=== PATIENT | female | born 1955 | race Two or more races ===

== ENCOUNTER 2019-04-27 11:00 | Inpatient (IN) | payer MEDICARE, MEDICAID ==
[~2019-04-27] VITALS: Ht 154.9 cm; Wt 146.8 kg
[2019-04-27] MEDS ORDERED: MethylPREDNISolone SOD SUCC 125 MG/2 ML VIAL IVP ONE (11:15)
[2019-04-27 11:18] LABS: GLUCOSE,POINT OF CARE 116 MG/DL (70-110)
[2019-04-27 11:33] LABS: BASOPHILS % (AUTO) 0.3 % (0.0-2.0); EOSINOPHILS % (AUTO) 0.8 % (1.0-6.0); HEMATOCRIT 29.8 % (36-46); HEMOGLOBIN 9.3 g/dL (12.0-16.0); LYMPHOCYTES % (AUTO) 12.1 % (22.0-44.0); MEAN CORPUSCULAR VOLUME 74 fL (80-100); MONOCYTES # (AUTO) 0.5 K/uL (0.1-1.0); MONOCYTES % (AUTO) 6.1 % (2.0-9.0); NEUTROPHILS # (AUTO) 6.9 K/uL (1.8-7.7); NEUTROPHILS % (AUTO) 80.7 % (40.0-70.0); PLATELET COUNT (AUTO) 303 K/uL (150-450); RED BLOOD CELL COUNT(AUTO) 4.02 MIL/uL (4.00-5.20); RED CELL DISTRIBUTION WIDTH 20.7 % (11.5-14.5)
[2019-04-27 11:43] LABS: ANION GAP 4 mmol/L (8-16); CALCIUM, TOTAL 8.8 mg/dL (8.8-10.5); CARBON DIOXIDE 37 mmol/L (22-29); CHLORIDE 104 mmol/L (98-107); CREATININE 0.42 mg/dL (0.60-1.30); GLOMERULAR FILTR. RATE CALC > 60 mL/min (>60); GLUCOSE,RANDOM 113 mg/dL (70-110); POTASSIUM 3.5 mmol/L (3.5-5.1); SODIUM SERUM 145 mmol/L (136-145); UREA NITROGEN, BLOOD 10 mg/dL (7-18)
[2019-04-27 11:48] LABS: ALANINE AMINOTRANSFERASE 19 U/L (12-78); ALBUMIN 2.7 g/dL (3.4-5.0); ALKALINE PHOSPHATASE 92 U/L (46-116); ASPARTATE AMINOTRANSFERASE 20 U/L (15-37); BILIRUBIN,TOTAL 0.6 mg/dL (0.1-1.0); TOTAL PROTEIN, SERUM 6.8 g/dL (6.4-8.2)
[2019-04-27 11:58] LABS: B-TYPE NATRIURETIC PEPTIDE 1290 pg/mL (0-100)
[2019-04-27] MEDS ORDERED: FUROSEMIDE 40 MG/4 ML VIAL IVP ONE (12:15)
[2019-04-27 12:54] LABS: ABG A-A DIFF O2 62.5 mmHg (10-20.0); ABG BASE EXCESS 15.6 mmol/L (-2.0-3.0); ABG CARBOXYHEMOGLOBIN 0.5 % (0.0-1.5); ABG HCO3 37.1 mmol/L (22.0-26.0); ABG METHEMOGLOBIN 0.3 % (0.0-1.5); ABG OXYGEN CONTENT 13.1 mL/dL (15.0-23.0); ABG OXYHEMOGLOBIN 91.3 % (94.0-100.0); ABG PCO2 63 mmHg (35-45); ABG PH 7.423 (7.35-7.450); ABG TOTAL HEMOGLOBIN 10.2 G/dL (12.0-18.0); SOURCE, BLOOD GAS ARTERIAL; TEMPERATURE, FAHRENHEIT, BG 98.7 FAHREN (96.0-98.6)
[2019-04-27] MEDS ORDERED: IPRATROPIUM BROMIDE 0.5 MG/2.5 ML NEB SOLUTION NEB PRN (13:00)
[2019-04-27] MEDS ORDERED: MAGNESIUM HYDROXIDE SUSPENSION 30 ML UDCUP PO PRN (13:00)
[2019-04-27] MEDS ORDERED: ALBUTEROL SULFATE 2.5 MG/0.5 ML NEB SOLUTION NEB PRN (13:00)
[2019-04-27] MEDS ORDERED: AZITHROMYCIN 500 MG/NS 250 ML IV SCH (13:00)
[2019-04-27 13:13] LABS: O2 DEVICE,BLOOD GAS BIPAP (ROOM AIR); SITE, BLOOD GAS LFT RADIAL; SPONTANEOUS VT, BG 556 ml
[2019-04-27 13:14] LABS: INSPIRATORY TIME, BG 1 SEC
[2019-04-27] MEDS ORDERED: ONDANSETRON HCL 4 MG/2 ML VIAL ONE (14:31)
[2019-04-27] MEDS ORDERED: LORazepam 2 MG/ML VIAL ONE (14:32)
[2019-04-27] MEDS ORDERED: LORazepam 2 MG/ML VIAL IVP ONE (14:45)
[2019-04-27] MEDS ORDERED: ONDANSETRON HCL 4 MG/2 ML VIAL IVP ONE (14:45)
[2019-04-27] MEDS: HEPARIN SODIUM,PORCINE 5,000 UNITS/ML VIAL SQ SCH ×2 (16:31→23:48)
[2019-04-27 16:36] LABS: ABG BASE EXCESS 16.1 mmol/L (-2.0-3.0); ABG CARBOXYHEMOGLOBIN 0.7 % (0.0-1.5); ABG HCO3 37.3 mmol/L (22.0-26.0); ABG METHEMOGLOBIN 0.3 % (0.0-1.5); ABG OXYGEN CONTENT 13.8 mL/dL (15.0-23.0); ABG OXYGEN SATURATION 93.3 % (95.0-98.0); ABG OXYHEMOGLOBIN 92.4 % (94.0-100.0); ABG PH 7.372 (7.35-7.450); ABG TOTAL HEMOGLOBIN 10.6 G/dL (12.0-18.0); PO2, ARTERIAL BG 71.4 mmHg (79.0-87.0); SOURCE, BLOOD GAS ARTERIAL; TEMPERATURE, FAHRENHEIT, BG 98.7 FAHREN (96.0-98.6)
[2019-04-27 16:42] LABS: ABG PCO2 73 mmHg (35-45); SITE, BLOOD GAS LFT RADIAL
[2019-04-27 16:43] LABS: O2 DEVICE,BLOOD GAS CANNULA (ROOM AIR)
[2019-04-27] MEDS: MethylPREDNISolone SOD SUCC 125 MG/2 ML VIAL IVP SCH ×2 (17:12→23:49)
[2019-04-27] MEDS ORDERED: CefTRIAXone 1 GM/DEXTROSE 50 ML IV SCH (18:00)
[2019-04-27] MEDS: DOCUSATE SODIUM 100 MG CAPSULE PO SCH (20:23)
[2019-04-28] MEDS ORDERED: METF-960 PO (05:16)
[2019-04-28 05:26] LABS: GLUCOSE,POINT OF CARE 135 MG/DL (70-110)
[2019-04-28] MEDS: MethylPREDNISolone SOD SUCC 125 MG/2 ML VIAL IVP SCH ×4 (06:00→23:51)
[2019-04-28] MEDS: DOCUSATE SODIUM 100 MG CAPSULE PO SCH ×2 (08:14→20:56)
[2019-04-28] MEDS: HEPARIN SODIUM,PORCINE 5,000 UNITS/ML VIAL SQ SCH ×3 (08:14→23:51)
[2019-04-28 08:55] LABS: GLUCOSE,POINT OF CARE 143 MG/DL (70-110)
[2019-04-28] MEDS: BUMETANIDE 0.25 MG/ML 4 ML VIAL IVP SCH (08:56)
[2019-04-28 09:33] LABS: ABG A-A DIFF O2 64.6 mmHg (10-20.0); ABG BASE EXCESS 17.6 mmol/L (-2.0-3.0); ABG CARBOXYHEMOGLOBIN 0.4 % (0.0-1.5); ABG HCO3 38.4 mmol/L (22.0-26.0); ABG METHEMOGLOBIN 0.3 % (0.0-1.5); ABG OXYGEN CONTENT 13.2 mL/dL (15.0-23.0); ABG OXYGEN SATURATION 92.2 % (95.0-98.0); ABG OXYHEMOGLOBIN 91.6 % (94.0-100.0); ABG PH 7.338 (7.35-7.450); ABG TOTAL HEMOGLOBIN 10.2 G/dL (12.0-18.0); PO2, ARTERIAL BG 67.3 mmHg (79.0-87.0); SOURCE, BLOOD GAS ARTERIAL
[2019-04-28 10:37] LABS: ABG PCO2 83 mmHg (35-45); O2 DEVICE,BLOOD GAS CANNULA (ROOM AIR); SITE, BLOOD GAS LFT RADIAL
[2019-04-28 12:52] LABS: ABG A-A DIFF O2 47.8 mmHg (10-20.0); ABG BASE EXCESS 16.2 mmol/L (-2.0-3.0); ABG CARBOXYHEMOGLOBIN 0.4 % (0.0-1.5); ABG HCO3 37.5 mmol/L (22.0-26.0); ABG METHEMOGLOBIN 0.3 % (0.0-1.5); ABG OXYGEN CONTENT 12.3 mL/dL (15.0-23.0); ABG OXYGEN SATURATION 91.5 % (95.0-98.0); ABG OXYHEMOGLOBIN 90.9 % (94.0-100.0); ABG PH 7.364 (7.35-7.450); ABG TOTAL HEMOGLOBIN 9.6 G/dL (12.0-18.0); PO2, ARTERIAL BG 64.2 mmHg (79.0-87.0); SOURCE, BLOOD GAS ARTERIAL
[2019-04-28 13:25] LABS: ABG PCO2 75 mmHg (35-45); O2 DEVICE,BLOOD GAS BIPAP (ROOM AIR); SITE, BLOOD GAS LFT RADIAL
[2019-04-28 13:26] LABS: INSPIRATORY TIME, BG 0.9 SEC; SPONTANEOUS VT, BG 528 ml
[2019-04-28 13:41] VITALS: BP 117/65
[2019-04-28 15:21] VITALS: BP 124/66
[2019-04-28] MEDS: ACETAMINOPHEN 325 MG TABLET PO PRN (16:53)
[2019-04-28 20:15] VITALS: BP 109/48
[2019-04-28 23:52] VITALS: BP 119/90
[2019-04-29 04:16] VITALS: BP 128/74
[2019-04-29] MEDS: MethylPREDNISolone SOD SUCC 125 MG/2 ML VIAL IVP SCH ×3 (05:40→18:09)
[2019-04-29 06:21] LABS: GLUCOMETER DEV NAME(LOC) 5S.2A; GLUCOSE,POINT OF CARE 177 MG/DL (70-110)
[2019-04-29 06:22] LABS: GLUCOMETER DEV NAME(LOC) 5N.2; GLUCOSE,POINT OF CARE 146 MG/DL (70-110)
[2019-04-29 07:45] VITALS: BP 122/66
[2019-04-29] MEDS: DOCUSATE SODIUM 100 MG CAPSULE PO SCH ×2 (08:21→20:33)
[2019-04-29] MEDS: HEPARIN SODIUM,PORCINE 5,000 UNITS/ML VIAL SQ SCH ×2 (08:22→16:00)
[2019-04-29] MEDS: BUMETANIDE 0.25 MG/ML 4 ML VIAL IVP SCH (08:23)
[2019-04-29 15:47] VITALS: BP 140/82
[2019-04-29 18:23] LABS: GLUCOMETER DEV NAME(LOC) 5S.2A; GLUCOSE,POINT OF CARE 125 MG/DL (70-110)
[2019-04-29 18:23] LABS: GLUCOMETER DEV NAME(LOC) 5S.2A; GLUCOSE,POINT OF CARE 151 MG/DL (70-110)
[2019-04-29] MEDS: ALBUTEROL SULFATE 2.5 MG/0.5 ML NEB SOLUTION NEB SCH ×2 (19:45→23:12)
[2019-04-29] MEDS: IPRATROPIUM BROMIDE 0.5 MG/2.5 ML NEB SOLUTION NEB SCH ×2 (19:45→23:12)
[2019-04-29 20:30] VITALS: BP 135/85
[2019-04-30 00:27] VITALS: BP 137/84
[2019-04-30] MEDS: HEPARIN SODIUM,PORCINE 5,000 UNITS/ML VIAL SQ SCH ×2 (00:32→08:22)
[2019-04-30] MEDS: MethylPREDNISolone SOD SUCC 125 MG/2 ML VIAL IVP SCH ×3 (00:33→12:38)
[2019-04-30 00:56] LABS: GLUCOMETER DEV NAME(LOC) 5S.2A; GLUCOSE,POINT OF CARE 157 MG/DL (70-110)
[2019-04-30] MEDS: ACETAMINOPHEN 325 MG TABLET PO PRN (03:22)
[2019-04-30 04:47] VITALS: BP 151/99
[2019-04-30 06:05] LABS: GLUCOMETER DEV NAME(LOC) 5S.2A; GLUCOSE,POINT OF CARE 162 MG/DL (70-110)
[2019-04-30] MEDS: ALBUTEROL SULFATE 2.5 MG/0.5 ML NEB SOLUTION NEB SCH ×3 (07:06→16:25)
[2019-04-30] MEDS: IPRATROPIUM BROMIDE 0.5 MG/2.5 ML NEB SOLUTION NEB SCH ×3 (07:06→16:24)
[2019-04-30 07:44] VITALS: BP 146/65
[2019-04-30] MEDS: BUMETANIDE 0.25 MG/ML 4 ML VIAL IVP SCH (08:22)
[2019-04-30] MEDS: DOCUSATE SODIUM 100 MG CAPSULE PO SCH (08:22)
[2019-04-30] MEDS ORDERED: BISACODYL 5 MG EC TABLET PO PRN (11:15)
[2019-04-30] MEDS ORDERED: ALPRAZolam 0.5 MG TABLET PO PRN (11:15)
[2019-04-30 11:46] VITALS: BP 134/75
[2019-04-30] MEDS ORDERED: ALBU8HFA IH (15:19)
[2019-04-30] MEDS ORDERED: FURO40 PO (15:19)
[2019-04-30] MEDS ORDERED: ADV250 IH (15:20)
[2019-04-30] MEDS ORDERED: OMEP20 PO (15:20)
[2019-04-30] MEDS ORDERED: PRED5 PO (15:23)
[2019-04-30 16:58] LABS: GLUCOMETER DEV NAME(LOC) 5N.2; GLUCOSE,POINT OF CARE 183 MG/DL (70-110)
== END 2019-04-30 15:50 | disposition home or self-care (01) | DRG 291 ==
LOC: EMS 11:02 → 5S 04-28 12:04
PROVIDERS: ADMIT Internal Medicine; ATTEND Internal Medicine
PROC: 5A09357 Assistance with Respiratory Ventilation, Less than 24 Consecutive Hours, Continuous Positive Airway Pressure (ICD-10-PCS; principal; 2019-04-28)
PROC: 5A09357 Assistance with Respiratory Ventilation, Less than 24 Consecutive Hours, Continuous Positive Airway Pressure (ICD-10-PCS; 2019-04-29)
DX: I11.0 Hypertensive heart disease with heart failure (principal); J96.21 Acute and chronic respiratory failure with hypoxia; J96.22 Acute and chronic respiratory failure with hypercapnia; Z68.44 Body mass index [BMI] 60.0-69.9, adult; J44.1 Chronic obstructive pulmonary disease with (acute) exacerbation; J81.1 Chronic pulmonary edema; E87.2 Acidosis; E66.2 Morbid (severe) obesity with alveolar hypoventilation; I50.33 Acute on chronic diastolic (congestive) heart failure; E11.9 Type 2 diabetes mellitus without complications; D64.9 Anemia, unspecified; Z83.3 Family history of diabetes mellitus; Z82.49 Family history of ischemic heart disease and other diseases of the circulatory system; Z87.891 Personal history of nicotine dependence; Z99.81 Dependence on supplemental oxygen
CPT/HCPCS: 36600; 82805; 84145; 87040; 87081; 93005; 94640; 94660; 96365; 96375; 99291; J0456; J0696; J1644; J1940; J2060; J2405; J2930; J3490